=== PATIENT | male | born 1990 | race Caucasian/White ===

== ENCOUNTER 2017-12-18 19:03 | Emergency (ER) | payer OTHER ==
[2017-12-18] MEDS ORDERED: ONDANSETRON 4 MG (ODT) TAB ONE (20:13)
[2017-12-18] MEDS ORDERED: ALBUTEROL 2.5 MG/3 ML NEB SOL ONE (20:13)
--- NOTE | 2017-12-18 20:25 | EDPHYS ---
Physician Documentation [facility] Name: Blaise Rosales Age: 27 yrs Sex: Male : 1990 Arrival Date: 12/18/2017 Time: 19:09 Bed 14 Private MD: ED Physician Tony Santos HPI: 12/18 20:21 This 27 yrs old Male presents to ER via Ambulatory with complaints of Flu gs Symptoms. 20:21 Onset: The symptoms/episode began/occurred 2 day(s) ago. Associated signs and symptoms: gs Pertinent positives: cough, vomiting. Severity of symptoms: At their worst the symptoms were moderate in the emergency department the symptoms are unchanged. The patient has experienced similar episodes in the past, a few times. The patient has not recently seen a physician. Historical: - Allergies: 19:21 No Known Allergies; ph - Home Meds: 19:21 None [Active]; ph - PMHx: 19:21 None; ph - PSHx: 19:21 None; ph - Immunization history:: Flu vaccine is up to date. - Social history:: Smoking status: Patient uses tobacco products, smokes one-half pack cigarettes per day. - Ebola Screening: : Patient denies travel to an Ebola-affected area in the 21 days before illness onset. ROS: 20:23 All other systems are negative. gs Exam: 20:23 Head/Face: Normocephalic, atraumatic. Eyes: Pupils equal round and reactive to light, gs extra-ocular motions intact. Lids and lashes normal. Conjunctiva and sclera are non-icteric and not injected. Cornea within normal limits. Periorbital areas with no swelling, redness, or edema. ENT: Nares patent. No nasal discharge, no septal abnormalities noted. Tympanic membranes are normal and external auditory canals are clear. Oropharynx with no redness, swelling, or masses, exudates, or evidence of obstruction, uvula midline. Mucous membranes moist. Neck: Trachea midline, no thyromegaly or masses palpated, and no cervical lymphadenopathy. Supple, full range of motion without nuchal rigidity, or vertebral point tenderness. No Meningismus. Chest/axilla: Normal chest wall appearance and motion. Nontender with no deformity. No lesions are appreciated. Cardiovascular: Regular rate and rhythm with a normal S1 and S2. No gallops, murmurs, or rubs. Normal PMI, no JVD. No pulse deficits. Abdomen/GI: Soft, non-tender, with normal bowel sounds. No distension or tympany. No guarding or rebound. No evidence of tenderness throughout. Back: No spinal tenderness. No costovertebral tenderness. Full range of motion. Skin: Warm, dry with normal turgor. Normal color with no rashes, no lesions, and no evidence of cellulitis. MS/ Extremity: Pulses equal, no cyanosis. Neurovascular intact. Full, normal range of motion. Neuro: Awake and alert, GCS 15, oriented to person, place, time, and situation. Cranial nerves II-XII grossly intact. Motor strength 5/5 in all extremities. Sensory grossly intact. Cerebellar exam normal. Normal gait. 20:23 Constitutional: The patient appears alert, awake. 20:23 Respiratory: the patient does not display signs of respiratory distress, Respirations: normal, symetrical, no use of accessory muscles, no prolonged exhalations, no pursed lip breathing, no retractions, Breath sounds: rhonchi, that are mild, are scattered, wheezing: is scattered. Vital Signs: 19:21 BP 136 / 91; Pulse 96; Resp 18; Temp 99.1(O); Pulse Ox 97% on R/A; Height 5 ft. 9 in. ph (175.26 cm) (R); 20:47 BP 124 / 90; Pulse 88; Resp 16; Pulse Ox 100% ; ao MDM: 19:52 Patient medically screened. 20:23 Differential diagnosis: viral Infection, URI, bronchitis. Data reviewed: vital signs, nurses notes. Response to treatment: the patient's symptoms have markedly improved after treatment, the patient's condition has returned to base line, patient is well hydrated. and as a result, I will discharge patient. Administered Medications: 20:17 Drug: Zofran 4 mg Route: PO; ao 20:49 Follow up: Response: No adverse reaction ao 20:18 Drug: Albuterol 2.5 mg Route: Inhalation; ao 20:49 Follow up: Response: No adverse reaction ao Disposition: 12/18/17 20:24 Discharged to Home. Impression: Acute bronchitis, Vomiting, Fever presenting with conditions classified elsewhere. - Condition is Stable. - Discharge Instructions: Acute Bronchitis, Adult, Nausea and Vomiting, Adult. - Prescriptions for Zofran 4 mg Oral Tablet - take 1 tablet by ORAL route every 12 hours As needed; 6 tablet. Albuterol Sulfate 90 mcg/actuation - inhale 1-2 puff by INHALATION route every 4-6 hours; 1 Inhaler. - Work release form, Medication Reconciliation Form, Thank You Letter, Antibiotic Education, Prescription Opioid Use form. - Follow up: Private Physician; When: 2 - 3 days; Reason: Recheck today's complaints, Re-evaluation by your physician. Signatures: Vicki James RN RN Ivan Collazo RN RN Tony Diego MD MD gs Corrections: (The following items were deleted from the chart) 20:48 20:24 12/18/2017 20:24 Discharged to Home. Impression: Acute bronchitis; Vomiting; ao Fever presenting with conditions classified elsewhere. Condition is Stable. Forms are Medication Reconciliation Form, Thank You Letter, Antibiotic Education, Prescription Opioid Use. Follow up: Private Physician; When: 2 - 3 days; Reason: Recheck today's complaints, Re-evaluation by your physician. gs
--- NOTE | 2017-12-18 20:25 | ER ---
Nurse's Notes [facility] Name: Blaise Rosales Age: 27 yrs Sex: Male : 1990 Arrival Date: 12/18/2017 Time: 19:09 Bed 14 Private MD: Diagnosis: Acute bronchitis;Vomiting;Fever presenting with conditions classified elsewhere Presentation: 12/18 19:16 Presenting complaint: Patient states: Since Sunday night he has been running fever, ph with sore throat and vomiting. Patient reports fatigue and chills. Reports productive cough and nasal congestion. Transition of care: patient was not received from another setting of care. Onset of symptoms was December 16, 2017. Risk Assessment: Do you want to hurt yourself or someone else? Patient reports no desire to harm self or others. Initial Sepsis Screen: Does the patient meet any 2 criteria? No. Patient's initial sepsis screen is negative. Does the patient have a suspected source of infection? Yes: Productive cough/pneumonia. Care prior to arrival: None. 19:16 Method Of Arrival: Ambulatory ph 19:16 Acuity: GRANT 4 ph Triage Assessment: 19:21 General: Appears in no apparent distress. uncomfortable, Behavior is calm, cooperative, ph appropriate for age. Pain: Complains of pain in left aspect of posterior pharynx and right aspect of posterior pharynx Pain currently is 6 out of 10 on a pain scale. EENT: Reports nasal congestion nasal discharge sore throat. Neuro: Level of Consciousness is awake, alert, obeys commands. Cardiovascular: Patient's skin is warm and dry. Respiratory: Airway is patent Respiratory effort is even, unlabored, Respiratory pattern is regular, symmetrical. Historical: - Allergies: 19:21 No Known Allergies; ph - Home Meds: 19:21 None [Active]; ph - PMHx: 19:21 None; ph - PSHx: 19:21 None; ph - Immunization history:: Flu vaccine is up to date. - Social history:: Smoking status: Patient uses tobacco products, smokes one-half pack cigarettes per day. - Ebola Screening: : Patient denies travel to an Ebola-affected area in the 21 days before illness onset. Screenin:25 Abuse screen: Denies threats or abuse. Denies injuries from another. Nutritional ao screening: No deficits noted. Tuberculosis screening: No symptoms or risk factors identified. Fall Risk None identified. Assessment: 20:00 General: Appears in no apparent distress. comfortable, Behavior is calm, cooperative, ao appropriate for age. Pain: Complains of pain in THroat and chest. Neuro: Level of Consciousness is awake, alert, obeys commands, Oriented to person, place, time, situation, Appropriate for age Moves all extremities. Full function Speech is normal, Cardiovascular: Capillary refill < 3 seconds Patient's skin is warm and dry. Respiratory: Airway is patent Respiratory effort is even, unlabored, Respiratory pattern is regular, symmetrical. Respiratory: Reports cough that is pain with cough. GI: Abdomen is round obese. : No signs and/or symptoms were reported regarding the genitourinary system. Derm: Skin is intact, Skin is pink, warm \T\ dry. normal, Skin temperature is warm. Musculoskeletal: 20:47 Reassessment: DC instructions given to Patient. Patient agree to follow up with PCP. ao given a work note as requested by patient. Vital Signs: 19:21 BP 136 / 91; Pulse 96; Resp 18; Temp 99.1(O); Pulse Ox 97% on R/A; Height 5 ft. 9 in. ph (175.26 cm) (R); 20:47 BP 124 / 90; Pulse 88; Resp 16; Pulse Ox 100% ; ao ED Course: 19:09 Patient arrived in ED. al2 19:21 Triage completed. ph 19:21 Arm band placed on Patient placed in an exam room. ph 19:26 Tony Santos MD is Attending Physician. gs 20:03 Ivan Collazo, RN is Primary Nurse. ao 20:26 Patient has correct armband on for positive identification. Fall risk band placed. ao Placed in gown. Pulse ox on. NIBP on. 20:46 No provider procedures requiring assistance completed. Patient did not have IV access ao during this emergency room visit. Administered Medications: 20:17 Drug: Zofran 4 mg Route: PO; ao 20:49 Follow up: Response: No adverse reaction ao 20:18 Drug: Albuterol 2.5 mg Route: Inhalation; ao 20:49 Follow up: Response: No adverse reaction ao Outcome: 20:24 Discharge ordered by . gs 20:46 Discharged to home ambulatory. ao 20:46 Condition: stable 20:46 Discharge instructions given to patient, Instructed on discharge instructions, follow up and referral plans. Demonstrated understanding of instructions, follow-up care, Prescriptions given X 2. 20:48 Patient left the ED. ao Signatures: Vicki James RN RN Ivan Collazo RN RN ao Starr, Gregory, MD MD Leila, Diane mendes
== END 2017-12-18 20:48 | disposition home or self-care (01) ==
LOC: ER 19:03
DX: J20.9 Acute bronchitis, unspecified (principal); R50.81 Fever presenting with conditions classified elsewhere; F17.210 Nicotine dependence, cigarettes, uncomplicated
CPT/HCPCS: 99284

== ENCOUNTER 2019-10-10 09:08 | Emergency (ER) | payer OTHER ==
--- NOTE | 2019-10-10 10:24 | ER ---
Nurse's Notes [facility] Name: Blaise Rosales Age: 29 yrs Sex: Male : 1990 Arrival Date: 10/10/2019 Time: 09:10 Bed 17 Private MD: Diagnosis: Vomiting, unspecified;Acute upper respiratory infection, unspecified Presentation: 10/09 09:17 Chief complaint: Patient states: vomiting at work and last couple weeks has been iw running fever, yesterday tried to go to work and vomited and also had fever 102, was told he needed to get tested, had a coworker test positive recently. Coronavirus screen: Surgical mask placed on patient. Patient moved to private room, placed in contact and droplet isolation with eye protection until further assessment. Coronavirus screen: Patient denies a cough. Patient denies shortness of breath or difficulty breathing. Patient reports a measured and/or subjective temperature greater than 100.4F. Patient denies travel on a cruise ship or to a country the [facility] currently lists as an affected area. Patient reports contact with known and/or suspected case of COVID-19. Ebola Screen: Patient negative for fever greater than or equal to 101.5 degrees Fahrenheit, and additional compatible Ebola Virus Disease symptoms Patient denies exposure to infectious person. Patient denies travel to an Ebola-affected area in the 21 days before illness onset. No symptoms or risks identified at this time. Initial Sepsis Screen: Does the patient meet any 2 criteria? No. Patient's initial sepsis screen is negative. Does the patient have a suspected source of infection? No. Patient's initial sepsis screen is negative. Risk Assessment: Do you want to hurt yourself or someone else? Patient reports no desire to harm self or others. Onset of symptoms was September 26, 2019. 09:17 Method Of Arrival: Ambulatory iw 09:17 Acuity: GRANT 4 iw Historical: - Allergies: 09:21 No Known Allergies; iw - Home Meds: 09:21 None [Active]; iw - PMHx: 09:21 None; iw - PSHx: 09:21 None; iw - Immunization history:: Adult Immunizations up to date. - Social history:: Smoking status: Patient reports the use of cigarette tobacco products, smokes one-half pack cigarettes per day. Screenin:15 Abuse screen: Denies threats or abuse. Denies injuries from another. Nutritional jl7 screening: No deficits noted. Tuberculosis screening: No symptoms or risk factors identified. Fall Risk None identified. Assessment: 10:15 General: Appears in no apparent distress. uncomfortable, Behavior is calm, cooperative. jl7 Pain:. Pain: Denies pain. Neuro: Level of Consciousness is awake, alert, obeys commands, Oriented to person, place, time, situation. Cardiovascular: Patient's skin is warm and dry. Respiratory: Airway is patent Respiratory effort is even, unlabored, Respiratory pattern is regular, symmetrical. GI: Reports nausea, vomiting. Derm: Skin is pink, warm \T\ dry. Vital Signs: 09:17 BP 126 / 88; Pulse 62; Resp 16 S; Temp 97.2; Pulse Ox 100% on R/A; Weight 141.97 kg; iw Height 5 ft. 11 in. (180.34 cm); 10:40 BP 131 / 92; Pulse 61; Resp 17; Pulse Ox 100% ; jl7 09:17 Body Mass Index 43.65 (141.97 kg, 180.34 cm) iw ED Course: 09:10 Patient arrived in ED. ag5 09:21 Triage completed. iw 09:21 Arm band placed on. iw 09:22 Geno Honeycutt FNP-C [facility]. snw 09:22 Oscar Vee MD is Attending Physician. snw 09:34 Steff Johnson RN is Primary Nurse. jl7 09:45 Flu and/or RSV swab sent to lab. Strep swab sent to lab. COVID-19 swab sent to lab. jl7 10:15 Patient has correct armband on for positive identification. Bed in low position. Call jl7 light in reach. Side rails up X 1. 10:41 No provider procedures requiring assistance completed. Patient did not have IV access jl7 during this emergency room visit. Administered Medications: No medications were administered Outcome: 10:24 Discharge ordered by . snw 10:42 Discharged to home ambulatory. jl7 10:42 Condition: stable 10:42 Discharge instructions given to patient, Instructed on discharge instructions, follow up and referral plans. medication usage, Demonstrated understanding of instructions, follow-up care, medications, Prescriptions given X 1. 10:42 Patient left the ED. jl7 Addendum: 10/12/2019 11:53 Addendum: Other Pt notified of negative COVID-19 swab results. Pt states they are still d m5 having symptoms. Pt advised to remain in isolation until they are symptoms free without medication for at least 3 days. Pt advised to return to ED for worsening symptoms. 10/20/2019 11:22 Addendum:. d m5 11:23 Addendum: Other pt received second COVID swab ordered by Dr. Booker on Sunday10/17/19. d m5 Attempted to contact pt of negative result. Left voice mail. Signatures: Janet Haro, RN RN dm5 Geno Honeycutt, REAL ESTATE INSTRUCTOR-C REAL ESTATE INSTRUCTOR-Csnw Mimi Gutiérrez, Steff Grajeda RN RN RN jl7 Adalberto Torres 5
--- NOTE | 2019-10-10 10:24 | EDPHYS ---
Physician Documentation [facility] Name: Blaise Rosales Age: 29 yrs Sex: Male : 1990 Arrival Date: 10/10/2019 Time: 09:10 Bed 17 Private MD: ED Physician Oscar Vee HPI: 10/09 09:44 This 29 yrs old Male presents to ER via Ambulatory with complaints of R/O snw COVID. 09:44 Onset: The symptoms/episode began/occurred gradually, 2 week(s) ago, and became snw persistent. Associated signs and symptoms: Pertinent positives: fever, vomiting. Modifying factors: The patient symptoms are alleviated by nothing. The patient has not experienced similar symptoms in the past. It is unknown whether or not the patient has recently seen a physician. pt exposed to CoVid per report at work, intermittent vomiting, fatigue. Historical: - Allergies: 09:21 No Known Allergies; iw - Home Meds: 09:21 None [Active]; iw - PMHx: 09:21 None; iw - PSHx: 09:21 None; iw - Immunization history:: Adult Immunizations up to date. - Social history:: Smoking status: Patient reports the use of cigarette tobacco products, smokes one-half pack cigarettes per day. ROS: 09:43 Eyes: Negative for injury, pain, redness, and discharge, ENT: Negative for injury, snw pain, and discharge, Neck: Negative for injury, pain, and swelling, Cardiovascular: Negative for chest pain, palpitations, and edema, Respiratory: Negative for shortness of breath, cough, wheezing, and pleuritic chest pain. 09:43 Back: Negative for injury and pain, : Negative for injury, bleeding, discharge, and swelling, MS/Extremity: Negative for injury and deformity, Skin: Negative for injury, rash, and discoloration, Neuro: Negative for headache, weakness, numbness, tingling, and seizure. 09:43 Constitutional: Positive for body aches, fever, poor PO intake. 09:43 Abdomen/GI: Positive for nausea and vomiting. Exam: 09:43 Constitutional: This is a well developed, well nourished patient who is awake, alert, snw and in no acute distress. Head/Face: Normocephalic, atraumatic. Eyes: Pupils equal round and reactive to light, extra-ocular motions intact. Lids and lashes normal. Conjunctiva and sclera are non-icteric and not injected. Cornea within normal limits. Periorbital areas with no swelling, redness, or edema. ENT: Nares patent. No nasal discharge, no septal abnormalities noted. Tympanic membranes are normal and external auditory canals are clear. Oropharynx with no redness, swelling, or masses, exudates, or evidence of obstruction, uvula midline. Mucous membranes moist. Neck: Trachea midline, no thyromegaly or masses palpated, and no cervical lymphadenopathy. Supple, full range of motion without nuchal rigidity, or vertebral point tenderness. No Meningismus. Chest/axilla: Normal chest wall appearance and motion. Nontender with no deformity. No lesions are appreciated. Cardiovascular: Regular rate and rhythm with a normal S1 and S2. No gallops, murmurs, or rubs. Normal PMI, no JVD. No pulse deficits. Respiratory: Lungs have equal breath sounds bilaterally, clear to auscultation and percussion. No rales, rhonchi or wheezes noted. No increased work of breathing, no retractions or nasal flaring. Abdomen/GI: Soft, non-tender, with normal bowel sounds. No distension or tympany. No guarding or rebound. No evidence of tenderness throughout. Back: No spinal tenderness. No costovertebral tenderness. Full range of motion. Skin: Warm, dry with normal turgor. Normal color with no rashes, no lesions, and no evidence of cellulitis. MS/ Extremity: Pulses equal, no cyanosis. Neurovascular intact. Full, normal range of motion. Neuro: Awake and alert, GCS 15, oriented to person, place, time, and situation. Cranial nerves II-XII grossly intact. Motor strength 5/5 in all extremities. Sensory grossly intact. Cerebellar exam normal. Normal gait. Psych: Awake, alert, with orientation to person, place and time. Behavior, mood, and affect are within normal limits. Vital Signs: 09:17 BP 126 / 88; Pulse 62; Resp 16 S; Temp 97.2; Pulse Ox 100% on R/A; Weight 141.97 kg; iw Height 5 ft. 11 in. (180.34 cm); 10:40 BP 131 / 92; Pulse 61; Resp 17; Pulse Ox 100% ; jl7 09:17 Body Mass Index 43.65 (141.97 kg, 180.34 cm) iw MDM: 09:23 Patient medically screened. [facility] 10:27 Data reviewed: vital signs, nurses notes. Data interpreted: Pulse oximetry: on room air snw is 100 %. Interpretation: normal. Counseling: I had a detailed discussion with the patient and/or guardian regarding: the historical points, exam findings, and any diagnostic results supporting the discharge/admit diagnosis, lab results, radiology results, the need for outpatient follow up, to return to the emergency department if symptoms worsen or persist or if there are any questions or concerns that arise at home. 10:27 Counseling: I had a detailed discussion with the patient and/or guardian regarding: snw smoking cessation. Special discussion: I have referred the patient to see his PCP for further evaluation of high blood pressure. Based on the history and exam findings, there is no indication for further emergent testing or inpatient evaluation. I discussed with the patient/guardian the need to see the primary care provider for further evaluation of the symptoms. 10/09 09:28 Order name: COVID-19 snw 10/09 09:28 Order name: Flu; Complete Time: 10:15 snw 10/09 09:28 Order name: Strep; Complete Time: 10:11 snw 10/09 09:28 Order name: Droplet/Contact Precautions; Complete Time: 09:38 snw 10/09 10:12 Order name: Throat Culture EDMS 10/09 09:28 Order name: Labs collected and sent; Complete Time: 09:38 snw 10/09 09:28 Order name: O2 Per Protocol; Complete Time: 09:38 snw Administered Medications: No medications were administered Disposition: 10:54 Co-signature as Attending Physician, Oscar Vee MD I agree with the assessment and [facility] plan of care. Disposition: 10/10/19 10:24 Discharged to Home. Impression: Vomiting, unspecified, Acute upper respiratory infection, unspecified. - Condition is Stable. - Discharge Instructions: Nausea and Vomiting, Adult, Upper Respiratory Infection, Adult, Rehydration, Adult, Alexander Diet. - Prescriptions for promethazine 25 mg Oral Tablet - take 1 tablet by ORAL route every 6 hours As needed; 20 tablet. - Work release form, Medication Reconciliation Form, Thank You Letter, Antibiotic Education, Prescription Opioid Use form. - Follow up: Emergency Department; When: As needed; Reason: Worsening of condition. Follow up: Private Physician; When: 1 - 2 days; Reason: Recheck today's complaints, Continuance of care, Re-evaluation by your physician. Signatures: Dispatcher [employer] Oscar Sun MD MD cha Therrien, Shelly, PRIMARY PRODUCTS INSPECTORS-C PRIMARY PRODUCTS INSPECTORS-Csnw Mimi Gutiérrez, RN Steff Grajeda RN RN jl7 Corrections: (The following items were deleted from the chart) 10:42 10:24 10/10/2019 10:24 Discharged to Home. Impression: Vomiting, unspecified; Acute jl7 upper respiratory infection, unspecified. Condition is Stable. Forms are Medication Reconciliation Form, Thank You Letter, Antibiotic Education, Prescription Opioid Use. Follow up: Emergency Department; When: As needed; Reason: Worsening of condition. Follow up: Private Physician; When: 1 - 2 days; Reason: Recheck today's complaints, Continuance of care, Re-evaluation by your physician. snw
[2019-10-10 11:05] VITALS: TEMP 97.2; O2SAT 100
[2019-10-10 11:06] VITALS: BP 131/92
== END 2019-10-10 10:42 | disposition home or self-care (01) ==
LOC: ER 09:08
DX: J06.9 Acute upper respiratory infection, unspecified (principal); R11.10 Vomiting, unspecified; Z20.828 Contact with and (suspected) exposure to other viral communicable diseases; F17.210 Nicotine dependence, cigarettes, uncomplicated
CPT/HCPCS: 87070; 87081; 87804 ×2; 99283; U0001

== ENCOUNTER 2021-09-03 08:15 | Emergency (ER) | payer BC ==
[2021-09-03 09:00] LABS: Absolute Lymphocytes (CBC) 1.9 K/uL (0.7-4.9); Lymphocytes % 22.9 % (15.3-44.8); RBC Red Blood Cell Count 5.47 M/uL (4.33-5.43)
[2021-09-03 09:18] LABS: Albumin 3.9 g/dL (3.4-5.0); Bilirubin Total 0.4 mg/dL (0.2-1.0); Potassium 3.8 mmol/L (3.5-5.1); Protein, Total 7.8 g/dL (6.4-8.2)
[2021-09-03] MEDS ORDERED: ONDANSETRON 4 MG/2 ML VIAL ONE (09:24)
[2021-09-03] MEDS ORDERED: NA CHLORIDE 0.9% 1,000 ML ONE (09:24)
[2021-09-03] MEDS ORDERED: LORazepam 2 MG/ML VIAL ONE (09:24)
--- NOTE | 2021-09-03 09:56 | ER ---
Nurse's Notes Formerly [facility] Name: Blaise Rosales Age: 31 yrs Sex: Male : 1990 Arrival Date: 09/03/2021 Time: 08:18 Bed 5 Private MD: Diagnosis: Chest pain, unspecified Presentation: 09/03 08:24 Chief complaint: Patient states: c/o generalized pain to chest, ribs, abdomen and back ss that began yesterday afternoon. Denies cough/ fever. Coronavirus screen: Client denies travel out of the [place] in the last 14 days. Ebola Screen: Patient denies exposure to infectious person. Patient denies travel to an Ebola-affected area in the 21 days before illness onset. Initial Sepsis Screen: Does the patient meet any 2 criteria? No. Patient's initial sepsis screen is negative. Does the patient have a suspected source of infection? No. Patient's initial sepsis screen is negative. Risk Assessment: Do you want to hurt yourself or someone else? Patient reports no desire to harm self or others. Onset of symptoms was September 02, 2021. 08:24 Method Of Arrival: Ambulatory ss 08:24 Acuity: GRANT 3 ss Triage Assessment: 08:26 General: Appears uncomfortable, Behavior is cooperative. Pain: Complains of pain in ss back, chest and abdomen Pain currently is 10 out of 10 on a pain scale. Quality of pain is described as aching, pressure, sharp. Neuro: Hurtado Agitation-Sedation Scale (RASS): +1 Restless Level of Consciousness is awake, alert, obeys commands, Oriented to person, place, time, situation. Cardiovascular: Capillary refill < 3 seconds is brisk in bilateral fingers Patient's skin is warm and dry. Respiratory: Airway is patent Respiratory effort is even, unlabored, Respiratory pattern is regular, symmetrical. Derm: Skin is intact, is healthy with good turgor, Skin is dry, Skin is pink, warm \T\ dry. normal. Musculoskeletal: Circulation, motion, and sensation intact. Range of motion: intact in all extremities, Swelling absent. Historical: - Allergies: 08:26 No Known Allergies; ss - Home Meds: 08: None [Active]; ss - PMHx: 08: None; ss - PSHx: 08:26 None; ss - Immunization history:: Client reports having NOT received the Covid vaccine. - Social history:: Smoking status: Patient reports use of chewing tobacco. Reported history of juuling and/or vaping. - Family history:: not pertinent. Screenin:12 Abuse screen: Denies threats or abuse. Denies injuries from another. Nutritional davidson screening: No deficits noted. Tuberculosis screening: No symptoms or risk factors identified. Fall Risk IV access (20 points). Assessment: 09:11 Pain: Pain radiates to chest and abdomen Pain began gradually. davidson 09:12 General: Appears uncomfortable, Behavior is anxious. Cardiovascular: Reports chest davidson pain, vomiting. GI: Bowel sounds present X 4 quads. Reports nausea, Pain is 7 out of 10 on a pain scale. vomiting. Vital Signs: 08:24 Pulse 77; Resp 22; Pulse Ox 100% ; Weight 151.05 kg; Height 5 ft. 9 in. (175.26 cm); Pain 10/10; 08:28 BP 160 / 134; ss 08:28 Temp 99.0(TE); ss 08:54 BP 164 / 109; Pulse 73; Resp 22; Pulse Ox 100% on R/A; vg1 09:29 BP 141 / 91; Pulse 73; Resp 18; Pulse Ox 100% ; davidson 08:24 Body Mass Index 49.17 (151.05 kg, 175.26 cm) ED Course: 08:18 Patient arrived in ED. mr 08:26 Triage completed. ss 08:26 Arm band placed on. ss 08:30 Devyn Bustos MD is Attending Physician. tn2 08:34 Karen Pretty RN is Primary Nurse. davidson 08:54 Initial lab(s) drawn, by [facility], sent to lab. Inserted saline lock: 20 gauge in left vg1 antecubital area, using aseptic technique. Blood collected. 09:12 Patient has correct armband on for positive identification. school lunch monitor on. Pulse davidson ox on. NIBP on. 09:12 No provider procedures requiring assistance completed. Inserted saline lock:. Patient davidson maintains SpO2 saturation greater than 95% on room air. 10:17 IV discontinued, intact, Pressure dressing applied. davidson Administered Medications: 09:28 Drug: NS 0.9% 1000 ml Route: IV; Rate: 1 bolus; Site: left antecubital; davidson 09:28 Drug: Zofran (Ondansetron) 4 mg Route: IVP; Site: left antecubital; davidson 09:28 Follow up: Response: No adverse reaction davidson 09:28 Drug: Ativan (LORazepam) 2 mg Route: IVP; Site: left antecubital; davidson 09:28 Follow up: Response: No adverse reaction davidson Medication: 09:12 VIS not applicable for this client. davidson Outcome: 09:55 Discharge ordered by MD. hackett 10:17 Discharged to home ambulatory. davidson 10:17 Condition: good 10:17 Discharge instructions given to patient, family, Prescriptions given X 2. 10:17 Patient left the ED. davidson Signatures: Katlyn Bhatia Shelby, RN Devyn Rodriguez MD MD ma2 Garcia, Victoria, RN RN vg1 Karen Pretty RN RN davidson
--- NOTE | 2021-09-03 09:56 | EDPHYS ---
Physician Documentation [facility] Name: Blaise Rosales Age: 31 yrs Sex: Male : 1990 Arrival Date: 09/03/2021 Time: 08:18 Bed 5 Private MD: ED Physician Devyn Bustos HPI: 09/03 09:11 This 31 yrs old Male presents to ER via Ambulatory with complaints of Chest Pain, ma2 Abdominal Pain, Vomiting, Breathing Difficulty. 09:11 Associated signs and symptoms: Pertinent negatives: cough, dizziness, lower extremity ma2 pain, nausea. Severity of pain: At its worst the pain was moderate in the emergency department the pain is unchanged. [id number]-year-old chest pain started 6 hours ago mild gradual, had similar pain in the past pain is worse when he takes deep breath. Historical: - Allergies: 08:26 No Known Allergies; ss - Home Meds: 08:26 None [Active]; ss - PMHx: 08:26 None; ss - PSHx: 08:26 None; ss - Immunization history:: Client reports having NOT received the Covid vaccine. - Social history:: Smoking status: Patient reports use of chewing tobacco. Reported history of juuling and/or vaping. - Family history:: not pertinent. ROS: 09:11 Constitutional: Negative for fever, chills, and weight loss. ma2 09:11 All other systems are negative. Exam: 09:11 Constitutional: This is a well developed, well nourished patient who is awake, alert, ma2 and in no acute distress. Head/Face: Normocephalic, atraumatic. Eyes: Pupils equal round and reactive to light, extra-ocular motions intact. Lids and lashes normal. Conjunctiva and sclera are non-icteric and not injected. Cornea within normal limits. Periorbital areas with no swelling, redness, or edema. ENT: Nares patent. No nasal discharge, no septal abnormalities noted. Tympanic membranes are normal and external auditory canals are clear. Oropharynx with no redness, swelling, or masses, exudates, or evidence of obstruction, uvula midline. Mucous membranes moist. Neck: Trachea midline, no thyromegaly or masses palpated, and no cervical lymphadenopathy. Supple, full range of motion without nuchal rigidity, or vertebral point tenderness. No Meningismus. Chest/axilla: Chest pain reproducible on exam, otherwise normal chest wall appearance and motion. Nontender with no deformity. No lesions are appreciated. Cardiovascular: Regular rate and rhythm with a normal S1 and S2. No gallops, murmurs, or rubs. Normal PMI, no JVD. No pulse deficits. Respiratory: Lungs have equal breath sounds bilaterally, clear to auscultation and percussion. No rales, rhonchi or wheezes noted. No increased work of breathing, no retractions or nasal flaring. Abdomen/GI: Soft, non-tender, with normal bowel sounds. No distension or tympany. No guarding or rebound. No evidence of tenderness throughout. Skin: Warm, dry with normal turgor. Normal color with no rashes, no lesions, and no evidence of cellulitis. MS/ Extremity: Pulses equal, no cyanosis. Neurovascular intact. Full, normal range of motion. Neuro: Awake and alert, GCS 15, oriented to person, place, time, and situation. Cranial nerves II-XII grossly intact. Motor strength 5/5 in all extremities. Sensory grossly intact. Cerebellar exam normal. Normal gait. Vital Signs: 08:24 Pulse 77; Resp 22; Pulse Ox 100% ; Weight 151.05 kg; Height 5 ft. 9 in. (175.26 cm); ss Pain 10/10; 08:28 BP 160 / 134; ss 08:28 Temp 99.0(TE); ss 08:54 BP 164 / 109; Pulse 73; Resp 22; Pulse Ox 100% on R/A; vg1 09:29 BP 141 / 91; Pulse 73; Resp 18; Pulse Ox 100% ; davidson 08:24 Body Mass Index 49.17 (151.05 kg, 175.26 cm) ss MDM: 09:07 Patient medically screened. ma2 09:11 Differential diagnosis: chest wall pain, gastroesophageal reflux disease (GERD), ma2 pancreatitis, HAIM score 0 heart score 0, chest pain worse with deep breath, noncardiac in signs and symptoms reproducible on exam, PERC is negative. We will do 1 set of high-sensitivity troponin if negative patient can be discharged with follow-up with PCP. Data reviewed: vital signs, nurses notes, EMS record. Counseling: I had a detailed discussion with the patient and/or guardian regarding: the historical points, exam findings, and any diagnostic results supporting the discharge/admit diagnosis, the presence of at least one elevated blood pressure reading (>120/80) during this emergency department visit, the need for outpatient follow up. 09/03 08:33 Order name: CBC with Diff; Complete Time: 09:08 la2 09/03 08:33 Order name: CMP; Complete Time: 09:54 la2 09/03 08:33 Order name: Lipase; Complete Time: :54 la2 09/03 09:11 Order name: Troponin High Sensitivity; Complete Time: 09:54 ma2 09/03 08:33 Order name: IV Saline Lock; Complete Time: 08:54 la2 09/03 08:33 Order name: Labs collected and sent; Complete Time: :54 la2 Administered Medications: 09:28 Drug: NS 0.9% 1000 ml Route: IV; Rate: 1 bolus; Site: left antecubital; davidson 09:28 Drug: Zofran (Ondansetron) 4 mg Route: IVP; Site: left antecubital; davidson 09:28 Follow up: Response: No adverse reaction davidson 09:28 Drug: Ativan (LORazepam) 2 mg Route: IVP; Site: left antecubital; davidson 09:28 Follow up: Response: No adverse reaction davidson Disposition Summary: 09/03/21 09:55 Discharge Ordered Location: Home ma2 Condition: Stable ma2 Diagnosis - Chest pain, unspecified ma2 Followup: ma2 - With: Private Physician - When: Tomorrow - Reason: If symptoms return, Continuance of care Discharge Instructions: - Discharge Summary Sheet ma2 - Nonspecific Chest Pain, Adult ma2 Forms: - Medication Reconciliation Form ma2 - Thank You Letter ma2 - Antibiotic Education ma2 - Prescription Opioid Use ma2 Prescriptions: - Diclofenac Sodium 75 mg Oral Tablet Sustained Release - take 1 tablet by ORAL route 2 times per day; 30 tablet; Refills: 0, Product ma2 Selection Permitted Signatures: Dispatcher [employer] Maricarmen Chakraborty RN RN Devyn Bustos MD MD [facility] Marlene-Karen Reed RN RN davidson
[2021-09-03 10:27] VITALS: O2SAT 100
[2021-09-03 10:29] VITALS: TEMP 99
[2021-09-03 10:32] VITALS: BP 141/91
--- NOTE | 2021-09-05 11:29 | EKG ---
Test Date: 2021-09-03 Test Time: 08:45:09 Medical Clerk: DANAY MEASUREMENT RESULTS: Intervals: Rate: 76 OH: 158 QRSD: 92 QT: 366 QTc: 411 [place]: P: 20 OH: 158 QRS: 1 T: 38 INTERPRETIVE STATEMENTS: Normal sinus rhythm Cannot rule out Anterior infarct, age undetermined Abnormal ECG No previous ECG available for comparison Electronically Signed On 09-05-21 11:23:53 CDT by Zoran Rogel
== END 2021-09-03 10:17 | disposition home or self-care (01) ==
LOC: ER 08:15
DX: R07.9 Chest pain, unspecified (principal); F17.220 Nicotine dependence, chewing tobacco, uncomplicated
CPT/HCPCS: 93005; 85025; 36415; 84484; 83690; 80053; 96375; 96374; 99285; J7030; J2405